=== PATIENT | male | born 1955 | race Caucasian/White ===

== ENCOUNTER 2017-08-06 07:10 | Day surgery (SDC) | payer BC ==
[2017-08-06 07:41] VITALS: BMI 27.1
[2017-08-06] MEDS ORDERED: PROPOFOL 20 ML ONE ×2 (08:05)
[2017-08-06] MEDS ORDERED: LIDOCAINE HCL 2% (20ML MULTI-DOSE VIAL) NR ONE (08:05)
[2017-08-06 09:15] VITALS: TEMP 97.5
[2017-08-06 10:01] VITALS: BP 119/61; PULSE 55
--- NOTE | 2017-08-07 13:42 | PATH ---
Surgical Pathology Report Patient Name: SHAN ZARATE [facility]. Rec. #: [id number] /Age/Gender: 1955 (Age: 62) / M Account: [id number] Location: U-ENDOSCOPY Taken: 08/06/2017 Received: 08/06/2017 Reported: 08/07/2017 Physicians: Sam Cedeño M.D. Specimen(s) Received A: POLYP DISTAL TRANSVERSE COLON POLYP B: BX CECAL POLYP Clinical History Preoperative diagnosis: Screening Postoperative diagnosis: Diverticulosis, colon polyps Final Diagnosis A. DISTAL TRANSVERSE COLON POLYP, BIOPSY: TUBULAR ADENOMA. B. CECUM, POLYP, BIOPSY: COLONIC MUCOSA SHOWING MILD SURFACE HYPERPLASTIC CHANGE. Electronically Signed Elisabeth Hernandez M.D. Gross Description A. Received in formalin, labeled "biopsy distal transverse colon polyp" are 2 barraza, irregular portions of soft tissue averaging 0.3 cm. in greatest dimension. The specimens are submitted in toto in one cassette. B. Received in formalin, labeled "biopsy cecal polyp" are 2 barraza, irregular portions of soft tissue measuring 0.2 and 0.4 cm. in greatest dimension. The specimens are submitted in toto in one cassette. 08/06/201708/06/2017
== END 2017-08-06 10:03 | disposition home or self-care (01) ==
LOC: JASU-ENDO 07:10
PROVIDERS: ATTEND Internal Medicine Gastroenterology
PROC: 0DBL8ZX Excision of Transverse Colon, Via Natural or Artificial Opening Endoscopic, Diagnostic (ICD-10-PCS; 2017-08-06)
PROC: 0DBH8ZX Excision of Cecum, Via Natural or Artificial Opening Endoscopic, Diagnostic (ICD-10-PCS; principal; 2017-08-06 08:00)
DX: Z12.11 Encounter for screening for malignant neoplasm of colon (principal); K64.8 Other hemorrhoids; K63.5 Polyp of colon; K57.30 Diverticulosis of large intestine without perforation or abscess without bleeding; K55.20 Angiodysplasia of colon without hemorrhage
CPT/HCPCS: 88305-TC

== ENCOUNTER 2023-12-07 04:35 | Day surgery (SDC) | payer BC ==
[2023-12-05 08:27] VITALS: BMI 28.9
[2023-12-07 09:50] VITALS: TEMP 97.9
[2023-12-07 09:52] VITALS: BP 107/94; PULSE 77; RESP 19
== END 2023-12-07 10:02 | disposition home or self-care (01) ==
LOC: JASU-ENDO 04:35
PROVIDERS: ATTEND Internal Medicine Gastroenterology
PROC: 0DJD8ZZ Inspection of Lower Intestinal Tract, Via Natural or Artificial Opening Endoscopic (ICD-10-PCS; principal; 2023-12-07 09:00)
DX: Z12.11 Encounter for screening for malignant neoplasm of colon (principal); K57.30 Diverticulosis of large intestine without perforation or abscess without bleeding; K64.8 Other hemorrhoids; Z86.010 Personal history of colon polyps